=== PATIENT | male | born 1985 | race Caucasian/White ===

== ENCOUNTER 2016-09-24 21:24 | Emergency (ER) | payer BC, OTHER ==
[~2016-09-24] VITALS: Ht 180.3 cm; Wt 64.9 kg
[~2016-09-24 21:24] MED LIST: ALL60 PO
[2016-09-24 21:28] VITALS: TEMP 36.3; Ht 180.3 cm; Wt 64.9 kg
[2016-09-24] MEDS ORDERED: ACET325T96 PO (21:43)
[2016-09-24] MEDS ORDERED: CHOL100010 PO (21:43)
[2016-09-24] MEDS ORDERED: GABA-774 PO (21:43)
[2016-09-24] MEDS ORDERED: CAFFEINE CITRATE 500 MG in SODIUM CHLORIDE 0.9% 1000ML 1,000 ML IV STA (22:02)
[2016-09-24] MEDS ORDERED: METOCLOPRAMIDE HCL INJ 5 MG/ML 2 ML VIAL IV STA (22:02)
[2016-09-24] MEDS ORDERED: SODIUM CHLORIDE 0.9% 1000ML 1,000 ML IV STA (22:02)
[2016-09-24] MEDS ORDERED: DiphenhydrAMINE HCL 50 MG/ML VIAL IV STA (22:02)
[2016-09-24 22:33] LABS: BASO % 0.4 %; BASO ABS # 0.02 K/uL (0-0.2); COMPLETE YES; EOS % 4.1 %; HEMATOCRIT 42.5 % (42-52); IG% 0.2 %; LYMPH % 37.8 %; LYMPH ABS # 2.05 K/uL (1.2-3.4); MEAN CELL VOLUME 87.6 fL (80-100); MEAN CORPUSCULAR HEMOGLOBIN 30.1 pg (25-34); MEAN CORPUSCULAR HGB CONC 34.4 g/dl (32-36); MEAN PLATELET VOLUME 9.2 fL (7.4-10.4); MONO % 7.4 %; NEUT % 50.1 %; PLATELET COUNT 212 K/uL (130-400); RED BLOOD COUNT 4.85 M/uL (4.7-6.1); WHITE BLOOD COUNT 5.43 K/uL (4.8-10.8)
[2016-09-24 22:53] LABS: BUN/CREATININE RATIO 23.6 (10-20); CALCIUM 8.9 mg/dl (8.5-10.1); CREATININE 0.95 mg/dl (0.60-1.40); POTASSIUM 3.8 mmol/L (3.5-5.1)
[2016-09-25] MEDS ORDERED: MoRPHine SULFATE 4 MG/ML 1 ML CARP\\VIAL IV STA (00:41)
[2016-09-25] MEDS ORDERED: ONDANSETRON INJ 2 MG/ML 2 ML VIAL IV STA (00:41)
[2016-09-25 02:34] LABS: LYME DISEASE AB IGG NEG (NEG); LYME DISEASE AB IGM NEG (NEG)
--- NOTE | 2016-09-25 04:06 | Medical Consult ---
Consultation Note Date of Service Sep 25, 2016. Consultation Note Patient is a 30 year old M with chief complaint of headache that started 2 days ago. Apparently the patient has had long standing symptoms of intermittent numbness in his upper extremities and underwent a diagnostic lumbar puncture with a neurologist in [facility] to rule out MS. On Monday, he awoke with an excruciating headache which he noted was much worse when seated on standing. Since Monday, his pain has steadily increased. Although the headache does improve when laying supine, it does not samantha completely. He has no other associated neurologic symptoms, and no signs of infection. There is no light or sound sensitivity. Conservative treatment with NSAIDs and caffeine was started in the ER with little relief. Given the time course of the headache in relation to the LP, I suspect that this headache may be due to his dural puncture. However, the fact that his headache does not completely resolve when supine, this points to either a relatively large leak or perhaps a different etiology of his headache. There is no contraindication to epidural blood patch and the patient would like to try this as his headache is quite debilitating. Informed consent was obtained prior to proceeding. Labs and studies were reviewed and unremarkable. Focal neurologic exam was unremarkable. The patient had a small puncture wound 1cm left an inferior to the L4-L5 interspinous space. No other pertinent physical exam findings. With the patient supine, the spine was prepped and draped in sterile fashion. A 17G tuhoy needle was advanced to the epidural space with loss of resistance at 3.5cm. At the same time, the L anticubital fossa was prepped by the patient' s nurse and an 18G IV was placed under sterile conditions. 20cc of blood was removed and slowly injected in to the epidural space. The patient experienced some mild cramping in his low back but otherwise had no symptoms. He was asked to lay supine for 30 minutes. The patient tolerated the procedure well. After 30 minutes, the patient's pain had completely resolved, save some cramping in his low back. Discharge per the ED. Thank you for the consult.
[2016-09-25 04:22] VITALS: BP 119/72; PULSE 57; O2SAT 100
--- NOTE | 2016-09-25 05:14 | EMERGENCY ROOM VISIT NOTE ---
History First contact with patient: 21:43 Chief Complaint: NECK PAIN Stated Complaint: SEVERE NECK PAIN History of Present Illness The patient is a 30 year old male who presents to the Emergency Room with complaints of spinal headache and neck discomfort the past few days after getting an LP 2 days ago for rule out MS by his neurologist in [facility]. Patient is in town visiting his girlfriend. He rode the bus stop for 5 hours. This made the headache worse. He describes the pain as Throbbing, ranging in severity 8 at 10 to the base of the skull and the paraspinal muscles. No new injury. Laying down makes it better sitting up makes it worse. Patient denies head injury, neck stiffness, fever, chills, cough, congestion, chest pain, dyspnea, abdominal pain, weakness or any other medical complaints. He has tried Motrin with no relief of symptoms. Patient received LP for rule out MS. He's been having tinglings in his hands. He is concerned for possible Lyme's. Review of Systems See HPI for pertinent positives & negatives. A total of 10 systems reviewed and were otherwise negative. Past Medical/Surgical History Lasik eye surgery, tonsillectomy Social History Smoking Status: Never Smoker Smokeless Tobacco Use: No Drug Use: none Marital Status: in relationship Current/Historical Medications Scheduled Cholecalciferol (Vitamin D), 1 TAB PO DAILY Gabapentin Enacarbil (Horizant), 600 MG PO QPM Scheduled PRN Acetaminophen Tab (Tylenol), 4-6 MG PO DAILY PRN for Pain Physical Exam Vital Signs Date Time Temp Pulse Resp B/P (MAP) Pulse Ox O2 Delivery O2 Flow Rate FiO2 09/25/16 04:22 57 16 119/72 100 09/25/16 03:47 63 124/63 99 Room Air 09/25/16 01:41 48 18 119/62 98 Room Air 09/25/16 00:08 51 18 119/62 98 Room Air 09/24/16 21:28 36.3 82 18 125/76 100 Room Air Pain Rating (0-10): 2.0 Physical Exam VITALS: Vitals are noted on the nurse's note and reviewed by myself. Vital signs stable. GENERAL: Pleasant male, in no acute distress, nondiaphoretic, well-developed well-nourished. SKIN: The skin was without rashes, erythema, edema, or bruising. There is no tenting of the skin. Capillary reflex less than 2 seconds. HEAD: Normocephalic atraumatic. EARS: External auditory canals clear, tympanic membranes pearly aguila without erythema or effusion bilaterally. EYES: Pupils equal round and reactive to light and accommodation. Conjunctivae without injection, sclerae without icterus. Extraocular movements intact. NOSE: Patent, turbinates without inflammation or discharge. No sinus tenderness. MOUTH: Mucous membranes moist. Pharynx without erythema or exudate. Uvula midline. Airway patent. Tongue does not deviate. NECK: Supple without nuchal rigidity. No lymphadenopathy. No thyromegaly. Cervical spine is nontender. No JVD. No meningeal signs HEART: Regular rate and rhythm without murmurs gallops or rubs. LUNGS: Clear to auscultation bilaterally without wheezes, rales or rhonchi. No dullness to percussion. No retractions or accessory muscle use. ABDOMEN: Positive bowel sounds x 4. Normal tympanic percussion. Soft, nontender, without masses or organomegaly. Stack sign negative. No guarding or rebound tenderness. MUSCULOSKELETAL: No muscle atrophy, erythema, or edema noted. NEURO: Patient was alert and oriented to person place and time. Normal sensation to light and sharp touch. No focal neurological deficits. Medical Decision & Procedures Laboratory Results 09/24/16 22:15 Red Blood Count 4.85, Mean Corpuscular Volume 87.6, Mean Corpuscular Hemoglobin 30.1, Mean Corpuscular Hemoglobin Concent 34.4, Mean Platelet Volume 9.2, Neutrophils (%) (Auto) 50.1, Lymphocytes (%) (Auto) 37.8, Monocytes (%) (Auto) 7.4, Eosinophils (%) (Auto) 4.1, Basophils (%) (Auto) 0.4, Neutrophils # (Auto) 2.73, Lymphocytes # (Auto) 2.05, Monocytes # (Auto) 0.40, Eosinophils # (Auto) 0.22, Basophils # (Auto) 0.02 09/24/16 22:15 Test 09/24/16 22:15 White Blood Count 5.43 K/uL (4.8-10.8) Red Blood Count 4.85 M/uL (4.7-6.1) Hemoglobin 14.6 g/dL (14.0-18.0) Hematocrit 42.5 % (42-52) Mean Corpuscular Volume 87.6 fL (80-100) Mean Corpuscular Hemoglobin 30.1 pg (25-34) Mean Corpuscular Hemoglobin Concent 34.4 g/dl (32-36) Platelet Count 212 K/uL (130-400) Mean Platelet Volume 9.2 fL (7.4-10.4) Neutrophils (%) (Auto) 50.1 % Lymphocytes (%) (Auto) 37.8 % Monocytes (%) (Auto) 7.4 % Eosinophils (%) (Auto) 4.1 % Basophils (%) (Auto) 0.4 % Neutrophils # (Auto) 2.73 K/uL (1.4-6.5) Lymphocytes # (Auto) 2.05 K/uL (1.2-3.4) Monocytes # (Auto) 0.40 K/uL (0.11-0.59) Eosinophils # (Auto) 0.22 K/uL (0-0.5) Basophils # (Auto) 0.02 K/uL (0-0.2) RDW Standard Deviation 39.2 fL (36.4-46.3) RDW Coefficient of Variation 12.2 % (11.5-14.5) Immature Granulocyte % (Auto) 0.2 % Immature Granulocyte # (Auto) 0.01 K/uL (0.00-0.02) Anion Gap 10.0 mmol/L (3-11) Est Creatinine Clear Calc Drug Dose 105.3 ml/min Estimated GFR () 124.9 Estimated GFR (Non- 107.7 BUN/Creatinine Ratio 23.6 (10-20) Calcium Level 8.9 mg/dl (8.5-10.1) Lyme Disease IgG Antibody NEG (NEG) Lyme Disease IgM Antibody NEG (NEG) Medications Administered Medications (Trade) Dose Ordered Sig/Kayli Route Start Time Stop Time Status Last Admin Dose Admin Caffeine Citrated 500 mg/Sodium Chloride 1,025 ml @ 512.5 mls/ hr ONE STAT IV 09/24/16 22:02 09/25/16 00:01 DC 09/24/16 22:56 512.5 MLS/HR Metoclopramide HCl (Reglan Inj) 10 mg NOW STAT IV 09/24/16 22:02 09/24/16 22:03 DC 09/24/16 22:16 10 MG Diphenhydramine HCl (Benadryl Inj) 12.5 mg NOW STAT IV 09/24/16 22:02 09/24/16 22:04 DC 09/24/16 22:16 12.5 MG Sodium Chloride 1,000 ml @ 125 mls/hr Q8H STAT IV 09/24/16 22:02 09/25/16 04:45 DC 09/24/16 22:16 125 MLS/HR Morphine Sulfate (MoRPHine SULFATE INJ) 4 mg NOW STAT IV 09/25/16 00:41 09/25/16 00:42 DC 09/25/16 00:52 4 MG Ondansetron HCl (Zofran Inj) 4 mg NOW STAT IV 09/25/16 00:41 09/25/16 00:42 DC 09/25/16 00:51 4 MG ED Course Prior records/ancillary studies reviewed. Additional history obtained from girlfriend Triage Nursing notes reviewed. The patient's history was concerning for headache. Differential diagnosis: Etiologies such as spinal headache, migraine headache, meningitis, sinusitis, CO exposure, ICH, SAH, infection, tumor, headache, sinus thrombosis, arterial dissection, as well as others were entertained. Physical examination findings: As above. Non-focal. ER treatment provided: Caffeine, Benadryl, Reglan, morphine, Zofran, IV fluids On reassessment the patient felt better. Diagnostics interpreted by me: The labs revealed stable H&H. Negative Lyme screen. Consultation: A consultation was placed with the anesthesiologist. The case was discussed and diagnostics were reviewed. He came in and gave the patient a blood patch. This resolved his symptoms.. This appears to be consistent with spinal headache. Patient received a blood patch and felt 100%. The above measures prior to this did not help. So anesthesiology was counseled. Patient was advised to lay in the bed flat for 12 hours tomorrow and light activity. He was advised to follow-up with his neurologist next week as scheduled or here in the ER sooner for spinal headache , fevers, neck stiffness, worsening signs or symptoms or as needed. Patient was neurovascularly and neurologically intact. He was well-appearing. By the evaluation outlined above emergent etiologies such as meningitis, sinusitis, CO exposure, ICH, SAH, infection, temporal arteritis, tumor, sinus thrombosis, arterial dissection, as well as others were deemed relatively unlikely. The pt informed about the findings as listed above. All questions were answered and pleased with the treatment. Return instructions were outlined and the patient was discharged in stable condition. Referral: The patient was referred back to their primary care physician for follow-up in 2 to 3 days for a recheck of the current condition. Case reviewed with my attending. Medical Decision As above Medication Reconcilliation Current Medication List: was personally reviewed by me Blood Pressure Screening Patient's blood pressure: Normal blood pressure Impression Primary Impression: Spinal puncture headache Departure Information Dispostion Home / Self-Care Condition GOOD Forms WORK / SCHOOL INSTRUCTIONS, HOME CARE DOCUMENTATION FORM, IMPORTANT VISIT INFORMATION Patient Instructions My [facility], ED Headache Post Spinal Tap W Patch Additional Instructions DO NOT drive, drink alcohol, operate machinery, or perform dangerous activities today. You were given medications in the ER that can affect your ability to safely function or operate a vehicle. Rest today in a quiet, peaceful, dark environment and get a full 8-10 hrs of sleep tonight. Avoid loud noises, smoke/smoking, alcohol, bright lights, stress, or physical exertion today to minimize the chance the headache may return. Continue current medications. Ibuprofen(Motrin, Advil) may be used for fever or pain. Use 600mg every six hours as needed. Take with food. Avoid using more than 2400mg in a 24 hour period. Do not use 2400mg per day for more than three consecutive days without physician direction. Prolonged inappropriate use can lead to stomach upset or ulcers. (AND/OR) Acetaminophen(Tylenol) may be used for fever or pain. Use 1000mg every six hours as needed. Avoid using more than 3000mg in a 24 hour period. Return to the ER for passing out, worsening headache, vision problems, neck stiffness/pain, fevers, vomiting, worsening of your condition, or as needed. Follow up with your primary physician and/or a neurologist in 2-3 days for a recheck of your current condition.
[2016-09-25] MEDS ORDERED: ACET500T57 PO (17:26)
[2016-11-09] MEDS ORDERED: CHOL400T (10:22)
[2016-11-09] MEDS ORDERED: GABA-113 PO (10:22)
[2016-11-09] MEDS ORDERED: CLON0.5T20 PO (10:22)
[2016-11-09] MEDS ORDERED: GLUC10007 PO (10:22)
== END 2016-09-25 04:20 | disposition home or self-care (01) ==
LOC: C.EDB 21:26 → C.EDA 09-25 04:20
DX: T88.59XA Other complications of anesthesia, initial encounter (principal); G44.40 Drug-induced headache, not elsewhere classified, not intractable; Z98.890 Other specified postprocedural states

== ENCOUNTER 2016-09-25 16:54 | Emergency (ER) | payer BC ==
[~2016-09-25] VITALS: Ht 180.3 cm; Wt 63.9 kg
[~2016-09-25 16:54] MED LIST changes: +ACET325T96 PO; +CHOL100010 PO; +GABA-774 PO
[2016-09-25 16:57] VITALS: TEMP 36.9; Ht 180.3 cm; Wt 63.9 kg
--- NOTE | 2016-09-25 17:18 | EMERGENCY ROOM VISIT NOTE ---
History Report prepared by Isaias: Don Malone Under the Supervision of: Dr. Alan Wallis M.D. First contact with patient: 17:07 Chief Complaint: OTHER COMPLAINT Stated Complaint: ONGOING SYMPTOMS FROM SPINAL TAP History of Present Illness The patient is a 30 year old male who presents to the Emergency Room with complaints of a waxing and waning spinal headache that started a couple days ago. He states that he had a lumbar puncture in [facility] a few days ago, and then rode a bus here to visit family. The patient says that ever since then , he has been having severe pain at the base of the back of his neck. He was seen here yesterday and had a blood patch done early this morning. He says that he felt better after the blood patch. The patient notes that he talked to an anesthesiologist while here, and the physician said that it may be a large leak or something else. The patient talked to his neurologist back home, and was recommended to speak to a neurologist here, but the patient has not reached out to one yet. The patient states that he woke up earlier today and felt okay, so he started resuming activities. He noticed when that when he stood up out of bed that the pain was severe again, so he decided to come here again to see a neurologist and have an MRI. He says that the pain is much worse with sitting up , but the pain does not completely go away in the horizontal position. The patient denies any fevers, vomiting, or weakness in his legs. Source of History: patient Onset: A couple days ago Position: neck Quality: other (spinal headache at base of neck) Timing: waxes/wanes Modifying Factors (Worsening): other (standing up) Modifying Factors (Relieving): other (lying down) Associated Symptoms: + headache, No fevers, No vomiting, No numbness (in legs) Note: No other associated symptoms noted. Review of Systems See HPI for pertinent positives & negatives. A total of 10 systems reviewed and were otherwise negative. Past Medical & Surgical Medical Problems: (1) No chronic problems Family History No pertinent family history Social History Smoking Status: Former Smoker Drug Use: none Marital Status: in relationship Current/Historical Medications Scheduled PRN Acetaminophen (Acetaminophen), 500 MG PO UD PRN for Pain or Fever Allergies Coded Allergies: No Known Allergies (Unverified , 08/02/07) Physical Exam Vital Signs Date Time Temp Pulse Resp B/P (MAP) Pulse Ox O2 Delivery O2 Flow Rate FiO2 09/25/16 22:31 70 18 111/60 98 09/25/16 21:07 77 18 107/61 99 Room Air 09/25/16 18:27 75 18 129/64 100 Room Air 09/25/16 16:57 36.9 82 18 112/77 98 Room Air Physical Exam GENERAL: Patient is well appearing and in mild distress. HEAD: No acute trauma, normocephalic atraumatic ENT: Mucous membranes moist, no nasal congestion. EYES: Equal/Reactive Bilaterally, No scleral icterus, Normal ROM NECK: No nuchal rigidity, no meningismus, trachea is midline, full ROM LUNGS: No dyspnea. Clear to auscultation and equal bilaterally. No wheeze, no rhonchi. HEART: Regular rate and rhythm. No murmurs, rubs, gallops appreciated. ABDOMEN: Soft, nontender, bowel sounds positive, no masses appreciated, no peritonitis. BACK: No midline tenderness, no CVA tenderness EXTREMITIES: Normal motion all extremities, no cyanosis, no edema. NEUROLOGIC: Awake, Alert, Oriented, no acute motor or sensory deficits, no focal weakness, cranial nerves grossly intact. SKIN: No rash, no jaundice, no diaphoresis. Medical Decision & Procedures ER Provider Diagnostic Interpretation: MRI results are stated below per my interpretation and the radiologist's interpretation. CERVICAL SPINE COMBO HISTORY: Demyelinating disorder severe posterior parra/neck pain s/p LP despite blood patch TECHNIQUE: Multiplanar multisequence MRI of the cervical spine was performed both before and after the use of intravenous contrast. COMPARISON STUDY: None. 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 Signal characteristics of the cervical spine vertebral bodies as well as disc are within normal limits. The sagittal inversion recovery images suggest very subtle in homogeneity of signal of the cord from C4 through C7. No evidence for abnormal postcontrast enhancement. C2-C3: No significant central canal or neural foraminal narrowing. C3-C4: No significant central canal or neural foraminal narrowing. C4-C5: No significant central canal or neural foraminal narrowing. C5-C6: No significant central canal or neural foraminal narrowing. C6-C7: No significant central canal or neural foraminal narrowing. C7-T1: No significant central canal or neural foraminal narrowing. IMPRESSION: 1. No evidence for disc herniation or spinal stenosis. 2. Very subtle cord in homogeneity on a single sagittal sequence. 3. No evidence for discrete plaque formation patient in this exam. 4. No evidence for abnormal postcontrast enhancement. 5. Correlation should be made with patient's neurological status and lumbar puncture results, to determine whether a follow-up MRI of the cervical spine is indicated at a 3 month time interval. The above report was generated using voice recognition software. It may contain grammatical, syntax or spelling errors. Electronically signed by: Abraham Soler M.D. 09/25/2016 9:30 PM Dictated Date/Time: 09/25/2016 9:24 PM BRAIN COMBO FOR MS HISTORY: Pain severe posterior parra/neck pain s/p LP despite blood patch TECHNIQUE: Multiplanar multisequence MRI of the brain was performed both before and after the intravenous administration of contrast. COMPARISON STUDY: None available FINDINGS: Diffusion-weighted images are considered negative for an acute ischemic event. Coronal as well as transaxial inversion recovery sequences suggesting a small focus of increased signal within the right corpus callosum as well as several punctate foci of increased signal within the mid cerebral hemispheres bilaterally. There is a Small focus within the left optic radiations present. There is a probable small focus of increased signal in the anterior right optic radiations. Ventricular system is midline. There is no evidence for abnormal postcontrast enhancement. Sella and parasellar regions are unremarkable. Internal auditory canals are symmetric. IMPRESSION: 1. No evidence for an acute ischemic event. 2. Several small foci of increased signal within the cerebral hemispheres bilaterally, left and to lesser extent right optic radiations, as well as central corpus callosum. 3. The appearance suggests the possibility of a demyelinating disorder versus an atypical vasculitis. 4. No evidence for abnormal postcontrast enhancement. 5. Correlation with patient's results for prior lumbar puncture should be performed for more definitive characterization The above report was generated using voice recognition software. It may contain grammatical, syntax or spelling errors. Electronically signed by: Abraham Soler M.D. 09/25/2016 9:23 PM Dictated Date/Time: 09/25/2016 9:15 PM Laboratory Results 09/25/16 17:45 Test 09/25/16 17:45 Red Blood Count 4.89 M/uL (4.7-6.1) Mean Corpuscular Volume 89.4 fL (80-100) Mean Corpuscular Hemoglobin 30.5 pg (25-34) Mean Corpuscular Hemoglobin Concent 34.1 g/dl (32-36) RDW Standard Deviation 39.4 fL (36.4-46.3) RDW Coefficient of Variation 12.2 % (11.5-14.5) Mean Platelet Volume 9.0 fL (7.4-10.4) Laboratory results as reviewed by me. Medications Administered Medications (Trade) Dose Ordered Sig/Kayli Route Start Time Stop Time Status Last Admin Dose Admin Sodium Chloride 1,000 ml @ 999 mls/hr Q1H1M STAT IV 09/25/16 17:33 09/25/16 18:33 DC 09/25/16 17:54 999 MLS/HR Acetaminophen 1000 mg/Empty Bag 100 ml @ 400 mls/hr NOW STAT IV 09/25/16 17:33 09/25/16 17:47 DC 09/25/16 18:10 400 MLS/HR Prochlorperazine Edisylate (Compazine Inj) 5 mg NOW STAT IV 09/25/16 17:33 09/25/16 17:38 DC 09/25/16 17:52 5 MG Diphenhydramine HCl (Benadryl Inj) 25 mg NOW STAT IV 09/25/16 17:33 09/25/16 17:38 DC 09/25/16 17:54 25 MG Caffeine Citrated 300 mg/Sodium Chloride 1,015 ml @ 512.5 mls/ hr TODAY@1815 ONCE IV 09/25/16 18:15 09/25/16 20:13 DC 09/25/16 18:27 512.5 MLS/HR ED Course 1708: The patient was evaluated in room C1B. A complete history and physical exam was performed. 1723: I discussed the patient with Dr. Allie MCBRIDE anesthesia - she suggests discussing with the patient whether he wants to attempt a second blood patch. 1729: I discussed the patient with [facility] - he says it is reasonable to repeat the blood patch, but if the patient has no improvement within 12-24 hours or starts having neuro symptoms, the patient needs an emergent MRI of the head and neck. 1732: I reevaluated the patient and he says he is not leaving without an MRI. 1733: Ordered Benadryl Inj 25 mg IV, Compazine Inj 5 mg IV, Acetaminophen 1000 mg/Empty Bag 100 ml @ 400 mls/hr IV, NSS 1000 ml @ 999 mls/hr IV. 1802: Ordered Xylocaine 4% Mpf 4 ml OP, Caffeine Citrated 300 mg/Sodium Chloride 1,015 ml @ 512.5 mls/hr IV. 1815: Ordered Caffeine Citrated 300 mg/Sodium Chloride 1015 ml @ 512.5 mls/hr IV. 1848: I reevaluated the patient and he says that he is feeling a little bit better. 2115: I reevaluated the patient and he notes continued mild posterior neck pain. 2137: I discussed the patient with Dr. Jono Montero [facility] neurologist. 2139: I reevaluated and updated the patient. 2151: I discussed the patient with Dr. Marcus Candelaria anesthesiology. 2219: Reevaluated the patient and he is resting. I will send him home with Fioricet tablets with instructions regarding no drinking, no driving, and no operating machinery. I also discussed taking 1 tablet prior to bed as necessary. Discussed results and discharge instructions: he verbalized understanding and agreement. The patient is ready for discharge. 2221: Ordered Fioricet Tab 3 tab PO. Medical Decision Differential: Headache, Migraine, Cluster Headache, Seizure, Meningitis, Sinusitis, CO exposure, ICH/SAH, Infectious, Tumor, Sinus Thrombosis, Arterial Dissection, post-LP headache, amongst other pathologies entertained. Pleasant 30 yr old very anxious male with posterior upper neck pain for last 24 hours post bus ride from [facility], though complicating things is LP he had done a few days earlier. Notes being in middle of work-up for MS. No neuro deficits nor symptoms. Has had right had paraesthesia for months which started this whole work-up. Continued headache, difficuly with standing due to pain. Reviewed with neuro and anesthesia and after long discussion with them and patient felt we will go ahead with MRI imaging to rule out acute issue in brain , be it from chiari malformation, abnormal herniation due to LP, infection, etc. MRI head/cervical with contrast done to make sure no emergent pathology. This revealed no acute issue, though there are multiple small areas of signal intensity throughout brain as well as through C4-C7. Reviewed again with Neuro/ Anesthesia. Plan no indication for steroids at this time as no neuro deficits. He already had LP done as outpatient so will need to await those findings prior to diagnosis MS/Vasculitis/Etc. Anesthesia notes minimal benefit to repeating a blood patch. Reviewed this with patient and he is agreeable to avoiding repeat patch, especially given risks infection and fact symptoms back within 12 hours of initial one. Reviewed at length symptoms requiring RTED. Will send home with a few Fioricet for pain. I suspect pain may be MSK given completely normal labs, vitals, MRI. Medication Reconcilliation Current Medication List: was personally reviewed by me Blood Pressure Screening Patient's blood pressure: Normal blood pressure Consults Time Called: 1719 Consulting Physician: Dr. Allie MCBRIDE anesthesia Returned Call: 1722 I discussed the patient with Dr. Allie MCBRIDE anesthesia - she suggests discussing with the patient whether he wants to attempt a second blood patch. Additional Consults: Time Called: 1724 Consulted Physician: Dr. Jono MCBRIDE neurology Returned Call: 1728 Additional Comments: I discussed the patient with Dr. Jono MCBRIDE neurology - he says it is reasonable to repeat the blood patch, but if the patient has no improvement within 12-24 hours or starts having neuro symptoms, the patient needs an emergent MRI of the head and neck. Time Called: 2134 Consulted Physician: Dr. Jono MCBRIDE neurologist Returned Call: 2137 Additional Comments: I discussed the patient with Dr. Jono MCBRIDE neurologist. Impression Primary Impression: Posterior neck pain Additional Impressions: Abnormal brain MRI Abnormal MRI, cervical spine Scribe Attestation The scribe's documentation has been prepared under my direction and personally reviewed by me in its entirety. I confirm that the note above accurately reflects all work, treatment, procedures, and medical decision making performed by me. Departure Information Dispostion Home / Self-Care Patient Instructions My [facility] Additional Instructions It is very important you follow up with your primary care provider and neurologist. Return if weakness, loss of bowel/bladder control, fevers, severe headache, or other concerns. Problem Qualifiers
[2016-09-25] MEDS ORDERED: ACET500T57 PO (17:26)
[2016-09-25] MEDS ORDERED: PROCHLORPERAZINE 5 MG/ML 2 ML VIAL IV STA (17:33)
[2016-09-25] MEDS ORDERED: DiphenhydrAMINE HCL 50 MG/ML VIAL IV STA (17:33)
[2016-09-25] MEDS ORDERED: SODIUM CHLORIDE 0.9% 1000ML 1,000 ML IV STA (17:33)
[2016-09-25] MEDS ORDERED: ACETAMINOPHEN IV 1,000 MG in EMPTY BAG 0 ML IV STA (17:33)
[2016-09-25 17:55] LABS: HEMATOCRIT 43.7 % (42-52); MEAN CELL VOLUME 89.4 fL (80-100); MEAN CORPUSCULAR HEMOGLOBIN 30.5 pg (25-34); MEAN CORPUSCULAR HGB CONC 34.1 g/dl (32-36); PLATELET COUNT 208 K/uL (130-400); RED BLOOD COUNT 4.89 M/uL (4.7-6.1); WHITE BLOOD COUNT 7.74 K/uL (4.8-10.8)
[2016-09-25] MEDS ORDERED: LIDOCAINE MPF 4% LOCAL INJ 5 ML AMP OP STA (18:02)
[2016-09-25] MEDS ORDERED: SODIUM CHLORIDE 0.9% IV ONE (18:15)
[2016-09-25] MEDS ORDERED: CAFFEINE CITRATE IV ONE (18:15)
[2016-09-25] MEDS ORDERED: GADAVIST IV PRN (20:45)
--- NOTE | 2016-09-25 21:25 | DIAGNOSTIC IMAGING REPORT ---
BRAIN COMBO FOR MS HISTORY: Pain severe posterior parra/neck pain s/p LP despite blood patch TECHNIQUE: Multiplanar multisequence MRI of the brain was performed both before and after the intravenous administration of contrast. COMPARISON STUDY: None available FINDINGS: Diffusion-weighted images are considered negative for an acute ischemic event. Coronal as well as transaxial inversion recovery sequences suggesting a small focus of increased signal within the right corpus callosum as well as several punctate foci of increased signal within the mid cerebral hemispheres bilaterally. There is a Small focus within the left optic radiations present. There is a probable small focus of increased signal in the anterior right optic radiations. Ventricular system is midline. There is no evidence for abnormal postcontrast enhancement. Sella and parasellar regions are unremarkable. Internal auditory canals are symmetric. IMPRESSION: 1. No evidence for an acute ischemic event. 2. Several small foci of increased signal within the cerebral hemispheres bilaterally, left and to lesser extent right optic radiations, as well as central corpus callosum. 3. The appearance suggests the possibility of a demyelinating disorder versus an atypical vasculitis. 4. No evidence for abnormal postcontrast enhancement. 5. Correlation with patient's results for prior lumbar puncture should be performed for more definitive characterization The above report was generated using voice recognition software. It may contain grammatical, syntax or spelling errors. Electronically signed by: Abraham Soler M.D. 09/25/2016 9:23 PM Dictated Date/Time: 09/25/2016 9:15 PM
--- NOTE | 2016-09-25 21:31 | DIAGNOSTIC IMAGING REPORT ---
CERVICAL SPINE COMBO HISTORY: Demyelinating disorder severe posterior parra/neck pain s/p LP despite blood patch TECHNIQUE: Multiplanar multisequence MRI of the cervical spine was performed both before and after the use of intravenous contrast. COMPARISON STUDY: None. 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 Signal characteristics of the cervical spine vertebral bodies as well as disc are within normal limits. The sagittal inversion recovery images suggest very subtle in homogeneity of signal of the cord from C4 through C7. No evidence for abnormal postcontrast enhancement. C2-C3: No significant central canal or neural foraminal narrowing. C3-C4: No significant central canal or neural foraminal narrowing. C4-C5: No significant central canal or neural foraminal narrowing. C5-C6: No significant central canal or neural foraminal narrowing. C6-C7: No significant central canal or neural foraminal narrowing. C7-T1: No significant central canal or neural foraminal narrowing. IMPRESSION: 1. No evidence for disc herniation or spinal stenosis. 2. Very subtle cord in homogeneity on a single sagittal sequence. 3. No evidence for discrete plaque formation patient in this exam. 4. No evidence for abnormal postcontrast enhancement. 5. Correlation should be made with patient's neurological status and lumbar puncture results, to determine whether a follow-up MRI of the cervical spine is indicated at a 3 month time interval. The above report was generated using voice recognition software. It may contain grammatical, syntax or spelling errors. Electronically signed by: Abraham Soler M.D. 09/25/2016 9:30 PM Dictated Date/Time: 09/25/2016 9:24 PM
[2016-09-25] MEDS ORDERED: BUTALBITAL/ACETAMIN/CAFFEINE TAB PO STA (22:22)
[2016-09-25 22:31] VITALS: BP 111/60; PULSE 70; O2SAT 98
[2016-11-09] MEDS ORDERED: CLON0.5T20 PO (10:22)
[2016-11-09] MEDS ORDERED: GLUC10007 PO (10:22)
[2016-11-09] MEDS ORDERED: CHOL400T (10:22)
[2016-11-09] MEDS ORDERED: GABA-113 PO (10:22)
== END 2016-09-25 22:31 | disposition home or self-care (01) ==
LOC: C.EDB 16:56 → C.EDC 22:31
DX: M54.2 Cervicalgia (principal); R94.02 Abnormal brain scan; R93.7 Abnormal findings on diagnostic imaging of other parts of musculoskeletal system; Z87.891 Personal history of nicotine dependence

== ENCOUNTER 2016-09-28 17:24 | Emergency (ER) | payer BC ==
[~2016-09-28] VITALS: Ht 180.3 cm; Wt 63.9 kg
[~2016-09-28 17:24] MED LIST changes: -ACET325T96 PO; +ACET500T57 PO; -ALL60 PO; -CHOL100010 PO; -GABA-774 PO
[2016-09-28 17:42] VITALS: TEMP 36.7; Ht 180.3 cm; Wt 63.9 kg
--- NOTE | 2016-09-28 18:23 | EMERGENCY ROOM VISIT NOTE ---
History Report prepared by Isaias: Albert Sales Under the Supervision of: Dr. Eitan Marx M.D. First contact with patient: 17:46 Chief Complaint: NECK PAIN Stated Complaint: SEVERE NECK PAIN, EAR PRESSURE/SENSITIVITY History of Present Illness The patient is a 30 year old male who presents to the Emergency Room with complaints of constant severe neck pain for the past six days. The patient additionally states that he is having ear pressure. The patient states that his pain is slightly worsened while standing up, and he has a headache in the back of his head. He denies any vision changes. He states that two weeks ago he had tingling in his hands, and they found lesions. He then had a lumbar puncture, and since then he has had this pain. The patient states that he had a blood patch done, and it did not help with his pain for very long. He states that he has not had any fevers and chills. Source of History: patient Onset: 6 days ago Position: neck Symptom Intensity: severe Timing: constant Associated Symptoms: + headache, No fevers, No chills Note: Associated symptoms: ear pressure Review of Systems All systems have been listed, reviewed, and are negative other than those previously mentioned. Please see Additional Medical History Sheet. Past Medical & Surgical Medical Problems: (1) No chronic problems Family History No pertinent family history Social History Smoking Status: Never Smoker Drug Use: none Marital Status: in relationship Occupation Status: student Current/Historical Medications Scheduled PRN Acetamin/Butalbital/Caffeine (Fioricet), 1 TAB PO for Headache Cyclobenzaprine Hcl (Flexeril), 10 MG PO TID PRN for Muscle Spasms Diazepam (Valium), 1 TAB PO BID PRN for Anxiety Allergies Coded Allergies: No Known Allergies (Unverified , 09/28/16) Physical Exam Vital Signs Date Time Temp Pulse Resp B/P (MAP) Pulse Ox O2 Delivery O2 Flow Rate FiO2 09/28/16 22:50 64 18 114/62 97 Room Air 09/28/16 21:26 82 18 127/75 97 Room Air 09/28/16 19:28 81 18 120/67 97 Room Air 09/28/16 17:42 36.7 95 18 121/74 97 Room Air Physical Exam GENERAL: Patient appears to be in mild to moderate distress. Patient awake, alert, oriented x 3. Patient follows commands. Patient does not appear toxic. Patient is adequately hydrated and well-nourished. SKIN: No erythema, pallor, cyanosis or rash HEENT: Normal head, pupils equal, reactive to light and accommodation. Ears normal. Oral cavity and posterior pharynx appear normal. Neck: Neck tightness in the superior aspect of trapezius bilaterally. Patient does not have true meningeal findings. No Brudzinski or Kernig's sign LUNGS: Clear to auscultation. No wheezes, no rales, no rhonchi. HEART: No murmurs. No gallops. No rubs ABDOMEN: Soft and non-tender EXTREMITIES: No signs of trauma or infection. NEUROLOGIC: Cranial nerves II-XII within normal limits. No gross motor sensory function deficits. Medical Decision & Procedures Laboratory Results 09/28/16 18:37 Test 09/28/16 18:37 Red Blood Count 4.87 M/uL (4.7-6.1) Mean Corpuscular Volume 88.5 fL (80-100) Mean Corpuscular Hemoglobin 30.4 pg (25-34) Mean Corpuscular Hemoglobin Concent 34.3 g/dl (32-36) RDW Standard Deviation 38.7 fL (36.4-46.3) RDW Coefficient of Variation 12.1 % (11.5-14.5) Mean Platelet Volume 9.1 fL (7.4-10.4) Laboratory results as stated above per my review. Medications Administered Medications (Trade) Dose Ordered Sig/Kayli Route Start Time Stop Time Status Last Admin Dose Admin Cyclobenzaprine HCl (Flexeril Tab) 10 mg NOW STAT PO 09/28/16 22:32 09/28/16 22:33 DC 09/28/16 22:49 10 MG ED Course 1801: Past medical records reviewed. The patient was evaluated in room C12. A complete history and physical examination was performed. 1832: I discussed the patient's case with Dr. Hancock, Anesthesiology, and he states that he will come evaluate the patient once they are done with a procedure. 2030: I signed out the patient to Dr. Lyons at the change of shift. Medical Decision Nurses notes reviewed. Medical history sheet reviewed. Differential diagnosis includes but is not limited to: viral/bacterial meningitis, spinal headache, and torticollis. The patient is here with a persistent head and neck ache. Initial LP performed almost one week ago. First blood patch performed here 09/24 with minimal relief. He was reevaluated here 09/25. He currently exhibits no signs of an acute meningitis. WBC was again checked and it is not elevated. Patient remains afebrile. He does not have true meningeal signs. I contacted Anesthesiology and they will evaluate for another blood patch. The case was signed off to Dr. Lyons at change of shift. Medication Reconcilliation Current Medication List: was personally reviewed by me Blood Pressure Screening Patient's blood pressure: Normal blood pressure Impression Primary Impression: Spinal headache Scribe Attestation The scribe's documentation has been prepared under my direction and personally reviewed by me in its entirety. I confirm that the note above accurately reflects all work, treatment, procedures, and medical decision making performed by me. Departure Information Dispostion Still a Patient Prescriptions Cyclobenzaprine Hcl (FLEXERIL) 10 Mg Tab 10 MG PO TID Y for Muscle Spasms, #20 TAB Prov: Bing Lyons, DO 09/28/16 Referrals No Doctor, Assigned (PCP) Patient Instructions My [facility] [address]
[2016-09-28] MEDS ORDERED: FRCT/ PO (18:31)
[2016-09-28] MEDS ORDERED: DIAZ10TA3 PO (18:31)
[2016-09-28 18:48] LABS: HEMATOCRIT 43.1 % (42-52); MEAN CELL VOLUME 88.5 fL (80-100); MEAN CORPUSCULAR HEMOGLOBIN 30.4 pg (25-34); MEAN CORPUSCULAR HGB CONC 34.3 g/dl (32-36); MEAN PLATELET VOLUME 9.1 fL (7.4-10.4); PLATELET COUNT 195 K/uL (130-400); RED BLOOD COUNT 4.87 M/uL (4.7-6.1); WHITE BLOOD COUNT 5.98 K/uL (4.8-10.8)
--- NOTE | 2016-09-28 21:59 | Procedure Note ---
Procedure Note Procedure Date Sep 28, 2016. Procedure Description Procedure Name: Epidural Blood Patch Procedure time out: side/site verified, patient ID confirmed, correct procedure Consent obtained: written Performed by: attending Indications: therapeutic Contraindications: none Description: The patient was placed in a sitting position with his shirt off. His back was cleaned sterilely with Chloraprep and draped. Lido 1% to skin at L3/4 disc space. 17 gauge Touhy advanced 4.5 cm with loss of resistance to saline. Epidural catheter placed in back. A tourniquet was placed on patient's LUE. His left hand was sterilely prepped with Chloraprep. A 20 gauge IV was placed and 20 ml of blood was withdrawn sterilely from the IV. The 20 ml of blood was then injected into the epidural catheter. The catheter was removed and the patient laid down on the bed. Complications: none Patient tolerated procedure: well Post-procedure vital signs: reviewed and stable Comments: The patient likely has a musculoskeletal component to his neck pain which I explained to the patient will not be relieved by the blood patch. He is to use warm compresses, massage, and NSAIDs for that pain. The patient and his parents were told to watch for any fever, severe back pain, redness over the epidural site, or any new lower extremity numbness, weakness, or incontinence which could indicated epidural abscess. He was told to go to the ER immediately if any of those symptoms occur. I spoke to Dr. Lyons about the patient and she will manage his discharge.
--- NOTE | 2016-09-28 22:31 | EMERGENCY ROOM VISIT NOTE ---
ED Visit Note First contact with patient: 22:15 Patient signed out to me by Dr. Marx. Patient seen in the department by anesthesiology and had a blood patch done. On my bedside evaluation patient resting confluent the supine position. Discussed his headache, treatment prior to this visit, and treatment options going forward. Discussed follow-up with his neurologist given recent MRI findings. Discussed use of a muscle relaxer in addition to the Fioricet he was previously prescribed. Patient had tried a dose of Valium and stated it did not help, discussed trying a different type of muscle relaxer. No additional narcotic pain medications will be given. Patient otherwise well-appearing, doubt meningitis secondary to recent lumbar puncture and instrumentation. No other symptoms to suggest need for emergent MRI patient's L-spine.
[2016-09-28] MEDS ORDERED: CYCLOBENZAPRINE HCL 10 MG TAB PO STA (22:32)
[2016-09-28] MEDS ORDERED: CYCL10TA6 PO (22:32)
[2016-09-28 22:50] VITALS: BP 114/62; PULSE 64; O2SAT 97
[2016-11-09] MEDS ORDERED: CLON0.5T20 PO (10:22)
[2016-11-09] MEDS ORDERED: GABA-113 PO (10:22)
[2016-11-09] MEDS ORDERED: CHOL400T (10:22)
[2016-11-09] MEDS ORDERED: GLUC10007 PO (10:22)
== END 2016-09-28 22:52 | disposition home or self-care (01) ==
LOC: C.EDB 17:25 → C.EDC 22:52
DX: T88.59XA Other complications of anesthesia, initial encounter (principal); M54.2 Cervicalgia; Y84.4 Aspiration of fluid as the cause of abnormal reaction of the patient, or of later complication, without mention of misadventure at the time of the procedure

== ENCOUNTER → 2016-10-28 | Outpatient (CLI) | payer BC ==
[~2016-10-28] VITALS: Ht 180.3 cm; Wt 63.5 kg
[~2016-10-28] MED LIST changes: -ACET500T57 PO; +CHOL400T; +CLON0.5T20 PO; +DIAZ10TA3 PO; +FRCT/ PO; +GABA-113 PO; +GLUC10007 PO
[2016-10-28 13:50] VITALS: BP 104/65; PULSE 75; Ht 180.3 cm; Wt 63.5 kg
== END | disposition home or self-care (01) ==
LOC: C.NEUR 13:35
PROVIDERS: ATTEND Internal Medicine Pulmonary Disease
DX: G47.00 Insomnia, unspecified (principal); L03.119 Cellulitis of unspecified part of limb

== ENCOUNTER → 2016-11-09 | Outpatient (CLI) | payer BC ==
--- NOTE | 2016-11-09 12:01 | DIAGNOSTIC IMAGING REPORT ---
L-SPINE FLEX/EXT BENDING MIN 6 CLINICAL HISTORY: LUMBAGO COMPARISON STUDY: No previous studies for comparison. FINDINGS: There are 5 lumbar type vertebral bodies present. No fractures or subluxations are visualized. There is no instability on flexion or extension. No destructive lesions are evident. There is a very mild spinal curvature convex to the right. IMPRESSION: Unremarkable conventional radiographic evaluation of the lumbar spine. Electronically signed by: Alek Weeks M.D. 11/09/2016 11:59 AM Dictated Date/Time: 11/09/2016 11:59 AM
== END | disposition home or self-care (01) ==
LOC: C.RADBC 11:29
PROVIDERS: ATTEND Physician Assistant
DX: M54.5 Low back pain (principal)

== ENCOUNTER → 2016-11-16 | Outpatient (CLI) | payer BC ==
[~2016-11-16] MED LIST changes: -DIAZ10TA3 PO; -FRCT/ PO
--- NOTE | 2016-11-18 16:02 | POLYSOMNOGRAPH REPORT ---
CLINICAL DATA: A 30-year-old male with a BMI of 19.38, referred by myself and Dr. Ventura for a history of sleep problems for the past 3-4 months. He has maintenance and onset insomnia. He does have possible leg movements at night. On the evening of 11/16/2016, a home sleep apnea test was performed using a [employer] type 3 monitor. RECORDING RESULTS: Total recording time was 10 hours. The patient monitoring time and estimated sleep time was 4.2 hours. RESPIRATORY DATA: There was no evidence of significant sleep apnea was seen. The BEATRIZ was 0.2. There was 1 obstructive apneic episode and 1 hypopneic episode recorded. The longest respiratory event was 18 seconds. OXIMETRY DATA: No hypoxemia was seen. Oxygen yoana was 88%. Mean saturation was 94%. HEART RATE DATA: Heart rates ranged from 58-70 beats per minute. SNORING DATA: Snoring was recorded intermittently throughout the night. PERFORMANCE MANAGER'S COMMENTS: The patient only wore the equipment for 4+ hours. He stated that he is only able to get 4 hours of sleep because of his inability to fall asleep and stay asleep. IMPRESSION: No evidence of clinically significant sleep apnea/hypopnea or nocturnal hypoxemia to explain the patient's symptoms. RECOMMENDATIONS: The patient will be seen back in the sleep clinic for further recommendations. If PLMD is suspected, then an in-lab sleep study may be needed. JEMMA
== END | disposition home or self-care (01) ==
LOC: C.NEUR 09:45
PROVIDERS: ATTEND Internal Medicine Pulmonary Disease
DX: L03.119 Cellulitis of unspecified part of limb (principal)

== ENCOUNTER → 2016-11-23 | Outpatient (CLI) | payer BC ==
--- NOTE | 2016-11-24 06:31 | PAP/PSG TECHNICIAN REPORT ---
[facility] Commercial Loan Assistant Polysomnogram Report Study name: None Report date: 11/24/2016 Study date: 11/23/2016 Referring Physician: Uvaldo Rivas M.D. Name: JOE MARIEE Interpreting Physician: Uvaldo Rivas M.D. Date of : 1985 Commercial Loan Assistant: Delores Smiley RPSGT. Sex: Male Age: 30 Study Type: PSG Weight: 140 lbs Height: 30 years, Height 5' 9" BMI: 20.67 Medications: AMITRIPTYLINE 10 MG, CLONAZEPAM 0.5 MG, GABAPENTIN 300 MG, MELATONIN 3 MG Patient History 30 yr-old male here for a baseline study. He has had previous sleep testing via home sleep testing. He has a history of sleep onset and sleep maintenance insomnia that started about three to four months ago. He also has some difficulty with concentration and higher stress levels due to his insomnia. His [place] scale is 14. The test was started on room air. ETCO2 testing was not utilized during this study. Room 1 Parameters Monitored NPSG: E1-M2, E2-M1, Fp1-M2, Fp2-M1, F3-M2, F4-M2, F4-M1, C3-M2, C4-M2, C4-M1, O1-M2, O2-M2, O2-M1, T3-M2, T4-M1, P3-M2, P4-M1, CHIN1, CHIN2, HR, EKG, Legs, PFLOW, SNOR, FLOW, CFLOW, Tidal Volume, THOR, ABDO, SpO2, PLTH, CPRESS, ETCO2 Wave, ETCO2, pH Sleep Architecture Sleep Stages Time at Lights Off 10:59:42 PM STAGES Time (min.) TST (%) Time at Lights On 5:48:12 AM Wake 81.0 -- Total Recording Time (TRT) 408.50 min. N1 31.0 9 Total Sleep Period (TSP) 344.0 min. N2 224.5 69 Total Sleep Time (TST) 327.5min. N3 26.0 8 Awake Time 81.0 min. REM 46.0 14 Wake after Sleep Onset 16.5 min. Sleep Efficiency (SE) 80 % Sleep Onset Latency (PIERCE) 64.5 min. Number of Stage 1 Shifts None Awakenings 8 Stage Changes 57 Number of REM periods 3 REM 46.0 14 REM Latency 78.0 min. NREM 281.5 86 Body Position Analysis Supine Right Left Side Prone Vertical Total Sleep Time (min.) 31.8 121.0 206.5 327.50 0.0 0.0 Total Sleep Time (%) 0% 37% 63% 100 0% N/A% Total Sleep Time REM (min.) 0.0 23.5 22.5 None 0.0 0.0 Total Sleep Time NREM (min.) 0.0 97.5 184.0 None 0.0 0.0 Intermittent Wake (min.) 31.8 44.0 5.2 None 0.0 0.0 Total Sleep Period (%) 0% None None None None None Arousals Myoclonus (PLM) * Events Count Index Events Count Index Spontaneous 24 4 Events Awake (PLMW) 96 71.1 Respiratory 1 0.2 Events Asleep w/ Arousal (PLMA) 0 0.0 PLM 0 0 Events Asleep w/o Arousal (PLMS) 87 15.9 Snoring 1 0 Total Asleep 87 15.9 Total 26 5 Total 183 27 Respiratory Analysis * CA OA MA CH H RERA Total Count 0 0 0 0 0 1 0 Index 0.0 0.0 0.0 0 0.0 0 0.2 Mean Duration 0.0 0.0 0.0 0.00 0.0 19.2 19.2 Longest Duration 0.0 0.0 0.0 0.00 0.0 19.2 19.2 Respiratory Event Summary Total Supine ~Supine Right Left Prone REM NREM Apneas Count 0 N/A 0 0 0 N/A 0 0 Index 0.0 N/A 0 0.0 0.0 N/A 0 0 Hypopneas (4% Desat) Count 0 N/A 0 0 0 N/A 0 0 Index 0.0 N/A 0 0.0 0.0 N/A 0.0 0.0 Apneas & All Hypopneas Count 0 N/A 0 0 0 N/A 0 0 Index 0.0 N/A 0 0 0 N/A 0.0 0.0 Respiratory Events (Clinical Services Assistant+All Hyp+RERA) Count 0 N/A 1 0 1 N/A 0 0 Index 0.2 N/A 0 0.0 0.3 N/A 0.0 0.2 Respiratory Related Arousal Count 1 N/A 1 0 1 N/A 0 1 Index 0.2 N/A 0 0 0 N/A 0 0 Snoring Analysis Supine Right Left Prone REM NREM Total Snore duration 0.4 min Snores count N/A 6 3 N/A 4 5 9 Snore mean duration 2.8 Sec Snores index N/A 3 1 N/A 5.2 1.1 1.6 TST with snoring (%) 0.1% Desaturation Event Summary: Minimum %SpO2 Event Count Mean/Min/Max Duration(sec.) Desaturation Index % Time In Bed > 90 5 33.8 / 21.0 / 47.8 0.8 100.0 86 - 90 0 N/A 0.0 0.0 81 - 85 0 N/A 0.0 0.0 76 - 80 0 N/A 0.0 0.0 71 - 75 0 N/A 0.0 0.0 66 - 70 0 N/A 0.0 0.0 61 - 65 0 N/A 0.0 0.0 56 - 60 0 N/A 0.0 0.0 51 - 55 0 N/A 0.0 0.0 < 50 0 N/A 0.0 0.0 Total REM NREM Awake <50% 0.0 min. 0.0 min. 0.0 min. 0.0 min. 51 - 60% 0.0 min. 0.0 min. 0.0 min. 0.0 min. 61 - 70% 0.0 min. 0.0 min. 0.0 min. 0.0 min. 71 - 80% 0.0 min. 0.0 min. 0.0 min. 0.0 min. 81 - 90% 0.0 min. 0.0 min. 0.0 min. 0.0 min. 91 - 100% 398.5 min. 46.0 min. 281.5 min. 71.0 min. Average 94 94 94 95 Minimum SpO2 91 92 91 91 Desaturation Event Index 0.7 0.0 0.4 2.2 # Desat. Events below 89% N/A N/A N/A N/A Time(%) with Saturation below 89% 0.0 0.0 0.0 0.0 Time(min.) with Saturation below 89% 0.0 0.0 0.0 0.0 Time (mins) REM (mins) NREM (mins) % of TST SpO2 Below 90% N/A N/A NN/A 0.0 SpO2 Below 88% 0 0 0 0 Heart Rate Analysis Min (bpm) Max (bpm) Average (bpm) Awake 49 98 66 NREM 44 90 57 REM 49 74 60 Overall 44 90 57 Supplemental O2 Values Minimum O2 level: None Value Start Time End Time Commercial Loan Assistant Comments Mr. Mariee slept in the right and left positions. No cardiac arrhythmias were noted. Some PLMs noted. No bruxism noted. Very little snoring was noted and scored as a 1 on a scale of 1 through 5. (0=no snoring, 5=snoring loud enough to be heard through a closed door or down the [address] way) He awoke to use the restroom two times during the night. Mr. Mariee stated that he slept about the same as usual. The final report will be interpreted and signed by a sleep physician. The completed physician report will then be placed in the patient medical record. Therapy (cm H2O) 0 TIB (min.) 408.5 TST (min.) 327.5 Sleep Onset (min.) 64.5 REM Onset From Sleep (min.) 78.0 Sleep Efficiency % 80 Wakefulness (%) 20 Wakefulness (min.) 81.0 NREM 1 (%) 9 NREM 1 (min.) 31.0 NREM 2 (%) 69 NREM 2 (min.) 224.5 NREM 3 (%) 8 NREM 3 (min.) 26.0 REM (%) 14 REM (min.) 46.0 # Arousals 26 Arousal Index 5 # Snore 9 Snore Index 1.6 AHI 0.0 AHI Supine N/A AHI Non-Supine 0 NREM AHI 0.0 REM AHI 0.0 RDI 0.2 # Obstructive Apnea 0 # Central Apnea 0 # Mixed Apnea 0 # Hypopneas 0 RERAs 1 Total Respiratory Events 1 Time Below SpO2 89% (min.) 0.0 Mean NREM SpO2 (%) 94 Mean REM SpO2 (%) 94 Mean Sleep SpO2 (%) 94 Min NREM SpO2 (%) 91 Min REM SpO2 (%) 92 Position Supine (min.) 31.8 Position Non-supine (min.) 327.5 LM Index Sleep 15.9 LM Index NREM 13.4 LM Index REM 31.3 Mean Heart Rate (bpm) 57 Min Heart Rate (bpm) 44
--- NOTE | 2016-11-24 16:10 | POLYSOMNOGRAPH REPORT ---
CLINICAL DATA: A 30-year-old male with a BMI of 20.7 referred by myself, Nae Melo, and Dr. Ventura for history of sleep onset and maintenance insomnia, neuropathy, and difficulty sleeping well with awakening for unknown reasons throughout the night, and fatigue. His [place] sleepiness score was 14/24. He did have a home sleep apnea test which did not show any evidence of significant sleep apnea. SLEEP ARCHITECTURE: Total sleep period was 344 minutes. Total sleep time was 327.5 minutes divided between 281.5 minutes of non-REM sleep and 46 minutes of REM sleep. Sleep onset latency was delayed at 64.5 minutes. REM latency was 78 minutes. Sleep efficiency was 80%. Wake after sleep onset was 16.5 minutes. Sleep consisted of stage N1 9%, stage N2 69%, stage N3 8%, and REM 14%. AROUSAL DATA: Twenty six arousals were recorded for an index of 5 per hour. Twenty four were spontaneous. PERIODIC LIMB MOVEMENTS DATA: There was no evidence of significantly increased leg movements during sleep. Eighty seven limb movements during sleep were noted for an index of 15.9 per hour with no arousals. RESPIRATORY DATA: There was no evidence of sleep apnea. The AHI was 0. OXIMETRY DATA: No hypoxemia was seen. Oxygen yoana was 91%. Mean saturation was 94%. ELECTROCARDIOGRAM: Heart ranged from 44-90 beats per minute. No arrhythmias were noted. VENEER JOINTER HELPER'S COMMENTS: The patient slept in the right and left positions. No bruxism was noted. Very minimal snoring was heard rated 1 on a scale of 1-5. IMPRESSION: No evidence of clinically significant sleep apnea/hypopnea, nocturnal hypoxemia or abnormal limb movements during sleep to explain this patient's symptoms. RECOMMENDATIONS: The patient should continue to practice good sleep hygiene. Referral for cognitive behavioral therapy for insomnia may be needed. PIOTRD
== END | disposition home or self-care (01) ==
LOC: C.NEUR 20:00
PROVIDERS: ATTEND Physician Assistant Medical
DX: G47.30 Sleep apnea, unspecified (principal); G47.00 Insomnia, unspecified; G62.9 Polyneuropathy, unspecified